=== PATIENT | male | born 1980 | race Caucasian/White ===

== ENCOUNTER → 2021-12-11 09:52 | Outpatient (CLI) | payer OTHER, SELFPAY ==
--- NOTE | ~2021-12-11 | XR_ITS ---
EXAMINATION: XR shoulder RT min 2V DATE: 12/11/2021 11:49 INDICATION: Unspecified injury of right shoulder and upper arm. TECHNIQUE: 4 views of right shoulder were obtained. COMPARISON: None. FINDINGS: Bone alignment is normal. No fracture. Joint spaces are well maintained. IMPRESSION: 1. Normal right shoulder. Reviewed, dictated and finalized at location A. ORT TEAM MEMBER IMPRESSION: 1. Normal right shoulder.
== END ==
PROVIDERS: PCP Family Medicine; Visit Provider Nurse Practitioner Family
DX: S49.91XA Unspecified injury of right shoulder and upper arm, initial encounter (principal)
CPT/HCPCS: 73030